=== PATIENT | male | born 1995 | race Caucasian/White ===

== ENCOUNTER 2021-07-21 16:17 | Emergency (ER) | payer OTHER ==
[~2021-07-21] VITALS: Ht 180.3 cm; Wt 159.1 kg
[2021-07-21 16:51] VITALS: TEMP 99.4
[2021-07-21] MEDS ORDERED: ZYRTEC ALLERGY10 MG PO (18:27)
[2021-07-21 20:04] VITALS: BP 138/73; PULSE 98
== END 2021-07-21 20:08 | disposition home or self-care (01) ==
LOC: COL.ER 16:17
DX: U07.1 COVID-19 (principal); E66.9 Obesity, unspecified; Z68.42 Body mass index [BMI] 45.0-49.9, adult
CPT/HCPCS: Q0244